=== PATIENT | male | born 1945 | race Caucasian/White ===

== ENCOUNTER 2018-06-07 16:16 | Inpatient (IN) | payer OTHER, BC ==
[~2018-06-07] VITALS: Ht 172.7 cm; Wt 98.2 kg
--- NOTE | ~2018-06-07 | EKG ---
[address] [place] [address] ELECTROCARDIOGRAM REPORT Name: EMILIE RUIZ Room #: 209-P ADM IN M.R.#: [id number] Admission: 06/07/18 Attend Phys: Angus Toussaint MD Discharge: Date of : 41 Report #: [id number] THIS REPORT FOR: //name// [facility] Test Date: 2018-06-11 Test Time: 06:44:34 Pat Name: EMILIE RUIZ Department: Room: 209 P Gender: M Tufter: KAILASH : 1945 Requested By: Estephanie Khanna Order Number: [id number] MD: Tae Silverio Measurements Intervals [place] Rate: 68 P: -10 MS: 294 QRS: 89 QRSD: 118 T: 257 QT: 454 QTc: 483 Interpretive Statements Sinus rhythm With atrial premature complex Prolonged MS interval Incomplete right bundle branch block Nonspecific T abnormalities, lateral leads Baseline wander in lead(s) V4,V5,V6 Compared to ECG 06/07/2018 17:41:47 Atrial premature complexes now present Electronically Signed On 06-11-2018 8:47:29 CDT by Tae Silverio [email or web address] <ELECTRONICALLY SIGNED> By: Tae Silverio MD, [facility] 06/11/18 [phone] Tae Silverio MD, [facility] /EPI
--- NOTE | ~2018-06-07 | HC ---
[facility] [place] [address] CONSULTATION Name: EMILIE RUIZ Room #: 209-P [facility] IN M.R.#: [id number] Admission: 06/07/18 Attend Phys: Angus Toussaint MD Discharge: 06/11/18 Date of : 41 Report #: [id number] THIS REPORT FOR: //name// CC: Yi Toussaint REASON FOR CONSULTATION: Elevated creatinine. REASON FOR PRESENTATION: Shortness of breath. HISTORY OF PRESENT ILLNESS: A 72-year-old with past medical history of diabetes mellitus, coronary artery disease, hypertension, chronic kidney disease with a baseline creatinine of around 1.5. He presented, reporting to shortness of breath that has been worsening over the last week or so. He also reported occasional dyspnea on exertion and orthopnea. He is known to have coronary artery disease, status post CABG in 1997. He is also known to have COPD and is maintained on chronic oxygen. It does look like that he had an outpatient thoracentesis in an outside facility a month ago. Because of the worsening of the symptoms, he presented for further evaluation and management. Creatinine on presentation was 1.8 and had risen to 2.2; however, it is on the trend down and back to where it should be at 2.0. He is currently being managed by Cardiology and hospitalist team. He does have very significant cardiomyopathy and his most recent ejection fraction was in the 30%-35%. PAST MEDICAL HISTORY: 1. Hypertension. 2. COPD. 3. Cardiomyopathy. 4. Peripheral arterial disease. 5. Back surgery. 6. Pain pump. 7. Cholecystectomy. MEDICATIONS: 1. Carvedilol. 2. Plavix. 3. Simvastatin. 4. Bumex. ALLERGIES: LISINOPRIL, SULFA and IODINE. FAMILY HISTORY: His mom had heart issues. SOCIAL HISTORY: He is . No drug or alcohol abuse. He used to be a grinding mill operator. REVIEW OF SYSTEMS: [facility] [address] [place] [address] CONSULTATION Name: EMILIE RUIZ Room #: 209-[facility] IN M.R.#: [id number] Admission: 06/07/18 Attend Phys: Angus Toussaint MD Discharge: 06/11/18 Date of : 41 Report #: [id number] GENERAL: No fever or chills. CARDIOVASCULAR: As per history of present illness. PULMONARY: As per the history of present illness. GASTROINTESTINAL: No nausea or vomiting. GENITOURINARY: No frequency, no urgency, no hesitancy. PHYSICAL EXAMINATION: VITAL SIGNS: Temperature 36.4, blood pressure 140/70. HEAD AND NECK: No jugular venous distention, no bruit, no thyromegaly. CHEST: Clear to auscultation bilaterally with limited air entry. CARDIOVASCULAR: Regular with no rub. ABDOMEN: Soft, nontender. LOWER EXTREMITIES: No edema. LABORATORY DATA: Reviewed. BUN is 42, creatinine is 2.0. Urine is completely unremarkable. Ultrasound consistent with bilateral cysts. ASSESSMENT, IMPRESSION, PLAN: 1. Chronic kidney disease. 2. Hypertension. 3. Cardiomyopathy. 4. He seems to be at his baseline from the renal perspective, looking at his numbers. He does have chronic kidney disease with bilateral renal cysts. We will try to optimize the care of his chronic kidney disease. 5. Continue to hold diuretics for now. 6. Address his chronic obstructive pulmonary disease. 7. Blood pressure control. 8. Augmentation of his heart failure therapy. 9. Strict input and output. 10. Fluid and salt restrictions. 11. Avoid nephrotoxins. 12. We will continue to follow along. <ELECTRONICALLY SIGNED> By: Mayela Hopkins MD 06/14/18 0634 0906 1248 Mayela Hopkins MD /nt
--- NOTE | ~2018-06-07 | HC ---
[facility] [place] [address] CONSULTATION Name: EMILIE RUIZ Room #: 209-P ADM IN M.R.#: [id number] Admission: 06/07/18 Attend Phys: Angus Toussaint MD Discharge: Date of : 41 Report #: [id number] THIS REPORT FOR: //name// CC: Yi Toussaint DATE OF SERVICE: 06/08/2018 TYPE OF REPORT: Cardiology consultation. HISTORY OF THE PRESENT ILLNESS: The patient is a 72-year-old white male who I was asked to see in the hospital today after he complained of being short of breath. The patient initially had quadruple coronary artery bypass surgery in 1997 at [facility]. He was cared for by Dr. Zia Rojo at that time. He then had several coronary stents placed. He eventually underwent redo coronary artery bypass surgery using 4 bypass grafts at [facility] in 2009. He does have a history of COPD and is on chronic oxygen. He is not very active because of that. He also has chronic back pain and has a morphine pump in place. Recently, he has had increasing shortness of breath. He actually underwent an outpatient thoracentesis at [facility] approximately a month ago. However, he continues to be short of breath. He finally came into the Emergency Room last night, was admitted for further evaluation and treatment. Recently, he has been coughing but denies any fever. He has had no significant edema. He denied any chest pain, palpitation or syncope. PAST MEDICAL HISTORY: Otherwise significant for previous cholecystectomy and back surgery. He has had stents in both legs for PAD. He has a history of hypertension, hyperlipidemia and diabetes. MEDICATIONS: Consist of albuterol inhaler, Bumex, carvedilol, Plavix, fenofibrate, insulin and simvastatin. ALLERGIES: He has a previous intolerance to LISINOPRIL and SULFA drugs. FAMILY HISTORY: His mother had congestive heart failure. SOCIAL HISTORY: He is . He and his live in [place], [place]. He is a retired composition roofer. They spend their marie in [place]. He no longer smokes cigarettes. He does use alcohol occasionally. REVIEW OF SYSTEMS: He has had no history of stroke. He has COPD, is on chronic oxygen and uses a nebulizer. He sees a hole digger truck driver at [facility]. He has no history of liver disease or peptic ulcer disease. He has chronic kidney disease. He had a [place] [address] CONSULTATION Name: EMILIE RUIZ Room #: 209-[facility] IN M.R.#: [id number] Admission: 06/07/18 Attend Phys: Angus Toussaint MD Discharge: Date of : 41 Report #: [id number] PHYSICAL EXAMINATION: GENERAL: Revealed an elderly male, lying in bed, appeared in no acute distress. VITAL SIGNS: He had a blood pressure of 140/80 and pulse 80. He is afebrile. HEENT: He is anicteric. Conjunctivae pink. Mucous members moist. NECK: Veins nondistended. No carotid bruits. CHEST: Revealed decreased breath sounds with prolonged expiratory wheeze. CARDIOVASCULAR: Regular rate and rhythm. ABDOMEN: Soft and nontender. EXTREMITIES: Had no edema. Dorsalis pedis pulse 2+ bilaterally. SKIN: Warm and dry. NEUROLOGICAL: Nonfocal. LYMPHATIC: No adenopathy. MUSCULOSKELETAL: No joint effusion. PSYCHIATRIC: Mood is appropriate. RADIOLOGICAL DATA: ECG, sinus rhythm, small inferior Q-waves, early transition and nonspecific T-wave changes. His workup so far, he had a chest x-ray in the emergency room yesterday that showed heart size is normal, evidence of previous sternotomy, no pulmonary infiltrates, small effusions. LABORATORY DATA: His lab work: Sodium 141, potassium 4.0, creatinine is 2.2 and it was actually 2.9 in 2009 and glucose is 288. Albumin is 2.9. Troponin 0.19. It was actually 0.33 on admission. Cholesterol 56, triglyceride 72, HDL 16 and LDL 26. His white blood cell count 5.9 and hemoglobin 14.3. IMPRESSION AND RECOMMENDATIONS: 1. Chronic obstructive pulmonary disease. 2. Coronary artery disease. No recent angina. The patient is on Plavix. I would recommend echocardiogram. 3. Diabetes. 4. Mild carotid stenosis. 5. Peripheral arterial disease. Previous stenting. 6. Hypertension. The patient is on a beta chris. 7. Hyperlipidemia. The patient is on a statin drug. 8. Chronic back pain. The patient has a morphine pump in place. 9. Previous removal of a melanoma. 10. Diabetes. 11. Chronic kidney disease. <ELECTRONICALLY SIGNED> By: Emilie Jack MD, FACC 06/09/18 1225 0833 1322 Emilie Jack MD, FAC /nt
--- NOTE | ~2018-06-07 | PATH ---
[facility] [address] [place] [address] PATHOLOGY RPT PROCEDURE Name: EMILIE RUIZ Room #: 209-P ADM IN M.R.#: [id number] Admission: 06/07/18 Date of : 41 Discharge: Report #: [id number] Path Case #: [id number] Note [facility] Accession Number: [id number] TESTS RESULT FLAG UNITS REF RANGE LAB Clinician Provided Cytology Information No. of containers..01 Other (Miscellaneous) Source: 01 PLEURAL FLUID DIAGNOSIS: 02 PLEURAL FLUID NEGATIVE FOR MALIGNANT CELLS. REACTIVE MESOTHELIAL CELLS ARE PRESENT. THIS INTERPRETATION INCLUDES EVALUATION OF A CELL BLOCK. Signed out by: 02 Rosita Chu MD, Pathologist NPI- [id number] Performed by: 03 Megan Estrada, Account Officer ([facility]) Gross description: 01 25ML, YELLOW, CLEAR /LCS FLAG LEGEND: L-Low Normal,H-High Normal,LL-Alert Low,HH-Alert High <-Panic Low,>-Panic High,A-Abnormal,AA-Critical Abnormal Performed at: [address] [place] [address] Reji Padilla MD, [address] [phone] Rosita Chu MD, [address] [address] Teja Mayers MD, Performed at: [address], [place], [place] [id number] MD Reji Padilla MD Phone: [phone]
--- NOTE | ~2018-06-07 | 2DMMODE ---
[facility] [address] [place] [address] 2 D/M-MODE ECHOCARDIOGRAM Name: JOSEPHEMILIE Room #: 209-P ADM IN M.R.#: [id number] Admission: 06/07/18 Attend Phys: Angus Toussaint, Discharge: Date of : 41 Date of Service: 06/08/18 1012 Report #: [id number] THIS REPORT FOR: //name// APPROVED REPORT Study performed: 06/08/2018 08:30:56 EXAM: Comprehensive 2D, Doppler, and color-flow Echocardiogram Patient Location: Echo lab Room #: 209 Status: routine BSA: 2.10 HR: 84 bpm BP: 150/78 mmHg Other Information Study Quality: Adequate Technically limited study due to lung disease, body habitus. Indications Short of breath, elevated BNP. Hx: SC, stents, CABG x2, COPD, HTN, DM. Echo Enhancing Agent Indication: Endocardial border delineation Agent(s) / Amount(s) Used: Definity 4 cc 2D Dimensions RVDd: 41.12 mm LVEF(%): 36.73 (>50%) IVSd: 11.28 (7-11mm) LVOT Diam: 20.23 (18-24mm) LVDd: 52.71 mm PWd: 10.26 (7-11mm) LVDs: 43.33 (25-40mm) Aortic Root: 33.20 mm Carolina's LVEF: 36.73 % Volumes Left Atrial Volume (Systole) Single Plane 4CH: 71.47 mL Single Plane 2CH: 80.57 mL LA ESV Index: 38.00 mL/m2 Aortic Valve AoV Peak Jesus.: 1.20 m/s AO Peak Gr.: 5.78 mmHg LVOT Max P.75 mmHg [facility] [address] [place] [address] 2 D/M-MODE ECHOCARDIOGRAM Name: EMILIE RUIZ Room #: 209-P [facility] IN M.R.#: [id number] Admission: 06/07/18 Attend Phys: Angus Toussaint, Discharge: Date of : 41 Date of Service: 06/08/18 1012 Report #: [id number] LVOT Max V: 0.83 m/s CHRISTIE Vmax: 2.22 cm2 Mitral Valve MV Decel. Time: 174.90 ms MV E Max Jesus.: 1.35 m/s Pulmonary Valve PV Peak Jesus.: 0.83 m/s PV Peak Gr.: 2.77 mmHg Tricuspid Valve TR Peak Jesus.: 3.18 m/s RAP Estimate: 5.00 mmHg TR Peak Gr.: 40.50 mmHg PA Pressure: 46.00 mmHg Left Ventricle The left ventricle is normal size. severe hypokinesis noted of the anterolateral wall There is normal left ventricular wall thickness. Left ventricular systolic function is moderately decreased. LVEF is 30-35%. This study is not technically sufficient to allow evaluation of the LV diastolic function. Right Ventricle The right ventricle is normal size. Right ventricle is mildly hypokinetic. Atria Left atrium is mildly dilated. Right atrium is mildly dilated. Aortic Valve Aortic valve is moderately calcified. No aortic regurgitation is present. There is no aortic valvular stenosis. Mitral Valve The mitral valve is normal in structure. Moderate mitral regurgitation. No evidence of mitral valve stenosis. Tricuspid Valve The tricuspid valve is normal in structure. Mild to moderate tricuspid regurgitation. Estimated PAP is 50mmHg. Pulmonic Valve The pulmonary valve is normal in structure. Trace pulmonic regurgitation. [facility] [address] [place] [address] 2 D/M-MODE ECHOCARDIOGRAM Name: EMILIE RUIZ Room #: 209-P ADM IN M.R.#: [id number] Admission: 06/07/18 Attend Phys: Angus Toussaint, Discharge: Date of : 41 Date of Service: 06/08/18 1012 Report #: [id number] Great Vessels The aortic root is normal in size. IVC is normal in size and collapses >50% with inspiration. Pericardium There is no pericardial effusion. Right pleural effusion noted. <Conclusion> LVEF is 30-35%. severe hypokinesis noted of the anterolateral wall Left atrium is mildly dilated. Right ventricle is mildly hypokinetic. Mild to moderate tricuspid regurgitation. Estimated PAP is 50mmHg. Moderate mitral regurgitation. <ELECTRONICALLY SIGNED> By: Emilie Jack MD, [facility] 06/08/18 1012 1012 1012 Emilie Jack MD, [facility] /INF
--- NOTE | ~2018-06-07 | EKG ---
[address] [place] [address] ELECTROCARDIOGRAM REPORT Name: EMILIE RUIZ Room #: 209-P ADM IN M.R.#: [id number] Admission: 06/07/18 Attend Phys: Angus Toussaint MD Discharge: Date of : 41 Report #: [id number] THIS REPORT FOR: //name// [facility] Test Date: 2018-06-07 Test Time: 17:41:47 Pat Name: EMILIE RUIZ Department: Room: Gender: M Photo Intern: TSTORCK : 1945 Requested By: Magdalena Mcgrath Order Number: [id number] MD: Anatoly Thornton Measurements Intervals [place] Rate: 78 P: -58 NH: 303 QRS: 93 QRSD: 127 T: -81 QT: 389 QTc: 444 Interpretive Statements Sinus or ectopic atrial rhythm Prolonged [place] interval RBBB and LPFB Nonspecific T abnormalities, lateral leads Electronically Signed On 06-07-2018 22:07:37 CDT by Anatoly Thornton [email or web address] <ELECTRONICALLY SIGNED> By: Anatoly Thornton MD 06/07/18 2207 40 174 Anatoly Thornton MD /ALEXA
[~2018-06-07 16:16] MED LIST: ALBUTEROL INH; AMLODIPINE BESY10 MG PO; ASPIRIN325; ASPIRIN325 PO; ASTELIN30 ML NS; CARVEDILOL12.5 MG PO; CELEXA 20 MG TA20 M1 PO; COREG PO; DESYREL100 MG PO; DIAZEPAM; FENOFIBRATE160 MG PO; FERROUS GLUCON325 M4 GT; FERROUS GLUCON325 M4 PO; K-DUR 20 MEQ T20 MEQ PO; KEFLEX500 MG PO; LASIX 20 MG TAB20 MG PO; LOFIBRA160 MG PO; MORPHINE; NITROQUICK0.4 MG SL; NOVOLIN R100 UNIT/1 IJ; PLAVIX 75 MG TA75 MG PO; PREDNISONE; PREDNISONE 20 M20 M1 PO; SYMBICORT160 MCG/4. INH; VICODIN 5-5001 EACH PO; ZOCOR80 MG PO
[2018-06-07 16:17] VITALS: BP 132/67
[2018-06-07 17:21] LABS: ABSOLUTE NEUTROPHILS 4.4 thou/uL (1.4-8.2); BASOPHILS 0.3 % (0.0-2.0); EOSINOPHILS 1.3 % (0.0-3.0); HEMOGLOBIN 14.3 gm/dL (14.0-18.0); LYMPHOCYTES 14.8 % (24.0-44.0); MCH 34.2 pg (26.0-34.0); MCV 100.4 fL (80.0-100.0); PLATELET COUNT 157 thou/uL (150-400); POLYS 74.6 % (36.0-66.0); RBC 4.18 mil/uL (4.50-6.00); RDW 13.9 % (10.5-14.5); WBC 5.9 thou/uL (4.0-11.0)
[2018-06-07 17:28] LABS: CALCIUM 9.3 mg/dL (8.5-10.1); CREATININE 1.9 mg/dL (0.7-1.3); POTASSIUM 3.8 mmol/L (3.5-5.1)
[2018-06-07 17:38] LABS: ALBUMIN 2.9 g/dL (3.4-5.0); TOTAL BILIRUBIN 2.6 mg/dL (<0.1-1.0); TOTAL PROTEIN 6.9 g/dL (6.4-8.2); TROPONIN-I 0.33 ng/mL (<0.06)
[2018-06-07 18:43] VITALS: BP 132/67
[2018-06-07 19:13] LABS: CHOLESTEROL 56 mg/dL (<200); HDL CHOLESTEROL 16 mg/dL (>40); LDL CHOLESTEROL 26 mg/dL (<100); TC:HDL 3.5 Ratio (Not establshd); TRIGLYCERIDE 72 mg/dL (<150); VLDL 14 mg/dL (<40)
[2018-06-07 20:09] LABS: URINE BILIRUBIN NEGATIVE (Negative); URINE BLOOD NEGATIVE (Negative); URINE CLARITY CLEAR; URINE COLOR YELLOW; URINE GLUCOSE-RANDOM* NEGATIVE (Negative); URINE KETONES NEGATIVE (Negative); URINE LEUKOCYTES-REFLEX NEGATIVE (Negative); URINE NITRITE-REFLEX NEGATIVE (Negative); URINE PROTEIN (DIPSTICK) NEGATIVE (Negative)
[2018-06-07 20:35] VITALS: BP 149/78
[2018-06-07] MEDS ORDERED: PLAVIX 75 MG TA75 M1 PO (22:05)
[2018-06-07] MEDS ORDERED: AMBIEN 5 MG TABL5 M1 PO (22:06)
[2018-06-07] MEDS ORDERED: VITAMINC500 PO (22:07)
[2018-06-07] MEDS ORDERED: VITAMIN D3400 UNIT PO (22:07)
[2018-06-07] MEDS ORDERED: UNICOMPLEX M TA1 TA1 PO (22:07)
[2018-06-07] MEDS ORDERED: LANTUS SUBQ (22:11)
[2018-06-07] MEDS ORDERED: NOVOLOG100 UNIT/1 SUBQ (22:12)
[2018-06-07] MEDS ORDERED: ADVAIR HFA 230M12 GM INH (22:13)
[2018-06-07] MEDS ORDERED: SPIRIVA INH (22:14)
[2018-06-07] MEDS ORDERED: PROAIR HFA8.5 GM INH (22:14)
[2018-06-07] MEDS ORDERED: MORPHINE 11000 MG/10 PCA (22:15)
[2018-06-08 00:09] VITALS: BP 157/80
[2018-06-08 05:06] VITALS: BP 150/78
[2018-06-08 05:50] LABS: CALCIUM 8.9 mg/dL (8.5-10.1); CREATININE 2.2 mg/dL (0.7-1.3); MAGNESIUM 1.7 mg/dL (1.8-2.4); TROPONIN-I 0.19 ng/mL (<0.06)
[2018-06-08 08:17] VITALS: BP 160/87
[2018-06-08 11:22] VITALS: BP 152/70
[2018-06-08 15:20] VITALS: BP 138/71
[2018-06-08 19:31] VITALS: BP 134/68
[2018-06-09 03:59] LABS: HEMATOCRIT 37.9 % (42.0-52.0); HEMOGLOBIN 12.8 gm/dL (14.0-18.0); MCH 34.1 pg (26.0-34.0); MCHC 33.8 g/dL (28.0-37.0); MCV 101.1 fL (80.0-100.0); RBC 3.75 mil/uL (4.50-6.00); RDW 13.8 % (10.5-14.5); WBC 7.3 thou/uL (4.0-11.0)
[2018-06-09 04:09] LABS: CALCIUM 8.8 mg/dL (8.5-10.1); MAGNESIUM 1.8 mg/dL (1.8-2.4); POTASSIUM 4.2 mmol/L (3.5-5.1)
[2018-06-09 04:23] VITALS: BP 155/94
[2018-06-09 07:50] VITALS: BP 148/70
[2018-06-09 11:41] VITALS: BP 134/71
[2018-06-09 15:12] LABS: CLARITY SLIGHTLY CLOUDY; COLOR YELLOW; SOURCE RIGHT CHEST; TOTAL VOLUME 62 mL
[2018-06-09 15:23] LABS: SOURCE RIGHT CHEST
[2018-06-09 15:28] LABS: BF NUCLEATED CELLS 120; BF RBC 577
[2018-06-09 16:13] LABS: BF MACROPHAGE 29; BF NEUTROPHILS 14
[2018-06-09 16:30] VITALS: BP 145/82
[2018-06-09 19:35] VITALS: BP 130/70
[2018-06-10 04:00] LABS: CALCIUM 8.6 mg/dL (8.5-10.1); CREATININE 1.8 mg/dL (0.7-1.3); MAGNESIUM 1.7 mg/dL (1.8-2.4); POTASSIUM 4.6 mmol/L (3.5-5.1)
[2018-06-10 04:45] VITALS: BP 127/57
[2018-06-10 05:14] LABS: HEMATOCRIT 35.4 % (42.0-52.0); HEMOGLOBIN 12.2 gm/dL (14.0-18.0); MCH 34.7 pg (26.0-34.0); MCHC 34.5 g/dL (28.0-37.0); MCV 100.4 fL (80.0-100.0); RBC 3.53 mil/uL (4.50-6.00); RDW 13.8 % (10.5-14.5); WBC 7.6 thou/uL (4.0-11.0)
[2018-06-10 07:10] VITALS: BP 133/71
[2018-06-10 11:00] VITALS: BP 130/59
[2018-06-10 14:08] LABS: BODY FLUID ALBUMIN 0.8 g/dL (()); BODY FLUID AMYLASE 23 U/L (()); BODY FLUID GLUCOSE 251 mg/dL (()); BODY FLUID LDH 78 IU/L (())
[2018-06-10 16:15] VITALS: BP 137/73
[2018-06-10 19:35] VITALS: BP 136/71
[2018-06-11 04:19] LABS: ALBUMIN 2.2 g/dL (3.4-5.0); CALCIUM 8.6 mg/dL (8.5-10.1); CREATININE 1.8 mg/dL (0.7-1.3); PHOSPHORUS 2.9 mg/dL (2.5-4.9); POTASSIUM 4.2 mmol/L (3.5-5.1)
[2018-06-11 04:27] LABS: HEMATOCRIT 35.4 % (42.0-52.0); HEMOGLOBIN 12.1 gm/dL (14.0-18.0); MCH 34.2 pg (26.0-34.0); MCHC 34.2 g/dL (28.0-37.0); MCV 99.9 fL (80.0-100.0); RBC 3.54 mil/uL (4.50-6.00); WBC 7.6 thou/uL (4.0-11.0)
[2018-06-11 05:14] VITALS: BP 131/69
[2018-06-11] MEDS ORDERED: IMDUR 30 MG TAB30 M1 PO (10:00)
[2018-06-11] MEDS ORDERED: COZAAR 25 MG TA25 M1 PO (10:01)
[2018-06-11] MEDS ORDERED: TORSEMIDE20 MG PO (10:02)
[2018-06-11] MEDS ORDERED: COLACE100 MG PO (10:02)
[2018-06-11] MEDS ORDERED: PROTONIX40 M1 PO (10:02)
[2018-06-11] MEDS ORDERED: PREDNISONE 10 M10 MG PO (10:03)
[2018-06-11] MEDS ORDERED: ASPIR 8181 MG PO (10:03)
[2018-06-11 10:25] VITALS: BP 139/75
== END 2018-06-11 11:08 | disposition home or self-care (01) | DRG 291 ==
LOC: ER 16:16 → 2N 18:08 → EROBS 18:08 → 2N 20:07 → ENTRNSPT 06-11 11:01 → EDTRNSPTSTS 06-11 11:03 → 2N 06-11 11:08
PROVIDERS: Internal Medicine; Internal Medicine Cardiovascular Disease; Nurse Practitioner; Nurse Practitioner Family
PROC: 0W993ZZ Drainage of Right Pleural Cavity, Percutaneous Approach (ICD-10-PCS; principal; 2018-06-09)
DX: I13.0 Hypertensive heart and chronic kidney disease with heart failure and stage 1 through stage 4 chronic kidney disease, or unspecified chronic kidney disease (principal); I50.43 Acute on chronic combined systolic (congestive) and diastolic (congestive) heart failure; J96.21 Acute and chronic respiratory failure with hypoxia; J44.1 Chronic obstructive pulmonary disease with (acute) exacerbation; E46 Unspecified protein-calorie malnutrition; N17.9 Acute kidney failure, unspecified; J98.11 Atelectasis; J90 Pleural effusion, not elsewhere classified; I42.9 Cardiomyopathy, unspecified; E11.51 Type 2 diabetes mellitus with diabetic peripheral angiopathy without gangrene; E80.6 Other disorders of bilirubin metabolism; I25.10 Atherosclerotic heart disease of native coronary artery without angina pectoris; I65.29 Occlusion and stenosis of unspecified carotid artery; M54.9 Dorsalgia, unspecified; G89.29 Other chronic pain; N18.9 Chronic kidney disease, unspecified; Z66 Do not resuscitate; E11.22 Type 2 diabetes mellitus with diabetic chronic kidney disease; G47.33 Obstructive sleep apnea (adult) (pediatric); I27.20 Pulmonary hypertension, unspecified; N28.1 Cyst of kidney, acquired; F32.9 Major depressive disorder, single episode, unspecified; E83.42 Hypomagnesemia; K21.9 Gastro-esophageal reflux disease without esophagitis; Z95.1 Presence of aortocoronary bypass graft; Z95.5 Presence of coronary angioplasty implant and graft; Z91.041 Radiographic dye allergy status; Z79.899 Other long term (current) drug therapy; Z90.49 Acquired absence of other specified parts of digestive tract; Z88.2 Allergy status to sulfonamides; Z82.49 Family history of ischemic heart disease and other diseases of the circulatory system; Z87.891 Personal history of nicotine dependence; Z68.32 Body mass index [BMI] 32.0-32.9, adult; Z79.82 Long term (current) use of aspirin
CPT/HCPCS: 10081